=== PATIENT | female | born 1975 | race Caucasian/White ===

== ENCOUNTER 2017-10-20 11:31 | Emergency (ER) | payer MEDICAID ==
--- NOTE | 2017-10-20 12:28 | EDPHY ---
H & P Stated Complaint: generalized pain Time Seen by Provider: 10/20/17 12:03 HPI/ROS: CHIEF COMPLAINT: "All over body pain" HISTORY OF PRESENT ILLNESS: 42-year-old female complaining 1 week of exacerbation of her chronic all-over body pain. Recent diagnosis of fibromyalgia. Tylenol and Motrin with minimal improvement symptoms. No focal pain. No trauma. No gait instability. No slurred speech. No fall. No neurologic deficits. No gait instability. No slurred speech. PRIMARY CARE PROVIDER: REVIEW OF SYSTEMS: A ten point review of systems was performed and is negative with the exception of the items mentioned in the HPI PAST MEDICAL & SURGICAL HISTORY: PTSD. Fibromyalgia. SOCIAL HISTORY: No alcohol or drug use. PHYSICAL EXAM (Prior to examination, patient consented to physical exam, hands were washed and my usual and customary physical exam procedures followed) 1) GENERAL: Well-developed, well-nourished, alert and oriented. Crying. 2) HEAD: Normocephalic, atraumatic 3) HEENT: Pupils equal, round, reactive to light bilaterally. Sclera anicteric. Nasopharynx, oropharynx, clear, no lesions. MoistDry mucous membranes. Ears bilaterally with normal tympanic membranes. 4) NECK: Full range of motion, no meningeal signs. 5) LUNGS: Clear auscultation bilaterally, no wheezes, no rhonchi, no retractions. 6) HEART: Regular rate and rhythm, no murmur, no heave, no gallop. 7) ABDOMEN: No guarding, no rebound, no focal tenderness, negative McBurney's, negative Mullins's, negative Rovsing's, negative peritoneal sign, 8) MUSCULOSKELETAL: Moving all extremities, no focal areas of tenderness, no obvious trauma. No peripheral edema or discoloration. 9) BACK: No CVA tenderness, no midline vertebral tenderness, no fluctuance, no step-off, no obvious trauma, no visual or palpable abnormality. 10) SKIN: No rash, no petechiae. 11) Psychiatric: Patient is oriented X 3, there is no agitation. 12) NEURO: Awake, alert, and oriented to person, place and time. Answers questions appropriately. There were no obvious focal neurologic abnormalities. No cerebellar dysfunction. Cranial nerves 2 through to 12 intact. Normal steady gait. Upper and lower extremities bilaterally with strength 5 / 5, reflexes 2+. DIFFERENTIAL DIAGNOSIS: In no particular order including but not limited to acute exacerbation of chronic fibromyalgia, rhabdomyolysis, myositis - Personal History LMP (Females 10-55): Hysterectomy Current Tetanus/Diphtheria Vaccine: Yes Current Tetanus Diphtheria and Acellular Pertussis (TDAP): Yes - Medical/Surgical History Hx Asthma: Yes Hx Chronic Respiratory Disease: No Hx Diabetes: No Hx Cardiac Disease: No Hx Renal Disease: Yes Hx Cirrhosis: No Hx Alcoholism: No Hx HIV/AIDS: No Hx Splenectomy or Spleen Trauma: No Other PMH: fibromyalgia, hysterectomy, abdominal surgeries, asthma, UTI, IBS - Social History Smoking Status: Former smoker Constitutional: Initial Vital Signs Temperature (C) 37.2 C 10/20/17 11:37 Heart Rate 81 10/20/17 11:37 Respiratory Rate 16 10/20/17 11:37 Blood Pressure 143/93 H 10/20/17 11:37 O2 Sat (%) 96 10/20/17 11:37 O2 Delivery Mode Room Air Allergies/Adverse Reactions: trazodone Allergy (Verified 10/20/17 11:36) Home Medications: Medication Instructions Recorded Clonazepam 10/20/17 Cyclobenzaprine [Flexeril 10 MG 10 mg PO TID #10 tab 10/20/17 (RX)] FLUoxetine 10/20/17 Hydroxyzine HCl 10/20/17 busPIRone 10/20/17 Medical Decision Making ED Course/Re-evaluation: Lengthy discussion with patient, recommended against first-line opiate therapy which she is agreeable with. Discussed the challenges of chronic pain management. Recommend follow up with her primary care provider. Discussed a prescription for Flexeril which may provide some relief. She is agreeable with this. Doubt rhabdomyolysis. Usual and customary discharge precautions and instructions provided. I saw this patient independently based on established practice protocols. Care of patient under supervision of secondary supervising physician Dr Jimenez . - Data Points Medications Given: Discontinued Medications Cyclobenzaprine HCl (Flexeril) 10 mg PO EDNOW ONE Stop: 10/20/17 12:34 Last Admin: 10/20/17 12:36 Dose: 10 mg Departure - Departure Disposition: Home, Routine, Self-Care Clinical Impression: Chronic pain Condition: Good Instructions: Chronic Pain (ED) Additional Instructions: Return to the ER if you develop new or worsening symptoms, if you have trouble walking, talking or any other symptoms that concern you. Referrals: YAZMIN,DOCTOR [Other] - 1-2 days without fail Prescriptions: Cyclobenzaprine [Flexeril 10 MG (RX)] 10 mg PO TID #10 tab
[2017-10-20] MEDS ORDERED: CYCLOBENZAPRINE 10 MG TAB PO ONE (12:33)
[2017-10-20 12:50] VITALS: BP 132/85
== END 2017-10-20 12:44 | disposition home or self-care (01) ==
DX: G89.29 Other chronic pain (principal); M79.7 Fibromyalgia; Z87.891 Personal history of nicotine dependence